=== PATIENT | male | born 1955 | race Caucasian/White ===

== ENCOUNTER 2020-03-30 12:08 | Emergency (ER) | payer MEDICARE, MEDICAID ==
[~2020-03-30] VITALS: Ht 193 cm; Wt 92.9 kg
[~2020-03-30 12:08] MED LIST: COL0.6T PO; HYDR-3567 PO; LISI40TA4 PO; METO100T7 PO; VAL5T PO
--- NOTE | 2020-03-30 12:33 | NUR ---
Daughter Latoya contact number [phone] or [phone] [place] contact number [phone]
[2020-03-30] MEDS ORDERED: normal saline 1000ML IV soln IVB ONE (13:30)
[2020-03-30] MEDS ORDERED: gabapentin 300mg capsule PO ONE (13:35)
[2020-03-30] MEDS ORDERED: ketorolac tromethamine 15mg/ml inj. IV ONE (13:35)
[2020-03-30 13:58] LABS: BASOPHILS # (AUTO) 0.1 X10'3 (0-0.2); BASOPHILS % (AUTO) 0.7 % (0-1); EOSINOPHILS % (AUTO) 0.4 % (0-6); HEMATOCRIT 46.4 % (42.0-52.0); LYMPHOCYTES % (AUTO) 10.9 % (21-51); MEAN CORPUSCULAR HGB CONC 34.5 g/dL (33.0-36.5); MEAN CORPUSCULAR VOLUME 95.6 FL (78-98); MEAN PLATELET VOLUME 6.8 FL (7.4-10.4); MONOCYTES # (AUTO) 0.6 X10'3 (0-0.9); MONOCYTES % (AUTO) 6.3 % (2-12); NEUTROPHILS # (AUTO) 7.8 X10'3 (1.8-7.7); NEUTROPHILS % (AUTO) 81.7 % (42-75); PLATELET COUNT 295 X10'3 (140-440); RED BLOOD COUNT 4.86 X10'6 (4.70-6.10); RED CELL DISTRIBUTION WIDTH 14.3 % (11.5-14.5); WHITE BLOOD COUNT 9.5 X10'3 (4.5-11.0)
[2020-03-30 14:05] LABS: ALANINE AMINOTRANSFERASE 30 U/L (12-78); ALBUMIN 4.5 G/DL (3.4-5.0); ALBUMIN/GLOBULIN RATIO 1.2 (1.1-1.5); ALKALINE PHOSPHATASE 95 IU/L (46-116); ANION GAP 5 (8-16); ASPARTATE AMINO TRANSFERASE 29 U/L (10-37); BILIRUBIN,TOTAL 0.9 MG/DL (0.1-1.0); BLOOD UREA NITROGEN 19 MG/DL (7-18); BUN/CREATININE RATIO 12.6 (5.4-32.0); CALCIUM 9.1 MG/DL (8.5-10.1); CHLORIDE 102 MMOL/L (99-107); CREATININE 1.51 MG/DL (0.60-1.10); GLUCOSE 120 MG/DL (70-104); POTASSIUM 4.6 MMOL/L (3.5-5.1); SODIUM 135 MMOL/L (135-145); TOTAL CARBON DIOXIDE 28.3 MMOL/L (24-32); TOTAL PROTEIN 8.4 G/DL (6.4-8.2); eGFR 47 ML/MIN
[2020-03-30 14:24] LABS: CLARITY,URINE SLIGHTLY CLOUDY (Clear); COLOR,URINE YELLOW (Yellow); GLUCOSE, URINE NEGATIVE (Neg); KETONES,URINE NEGATIVE (Neg); LEUKOCYTE ESTERASE ,URINE NEGATIVE (Neg); NITRITES, URINE NEGATIVE (Neg); OCCULT BLOOD,URINE SMALL (Neg); PH,URINE 5.5 (4.8-8.0); PROTEIN,URINE 100 mg/dl (Neg); UA COLLECTION TYPE CLN CATCH MIDSTREAM
[2020-03-30 14:33] LABS: MUCUS STRANDS MODERATE /LPF (Neg); SQUAMOUS EPITHELIAL CELL,UR MANY /LPF (FEW)
[2020-03-30 14:35] LABS: BACTERIA,URINE FEW /HPF (Neg); HYALINE CASTS 0-3 /LPF (NEGATIVE); RBC,URINE 0-2 /HPF (0-2); WBC,URINE 0-4 /HPF (0-4)
[2020-03-30 15:33] VITALS: BP 188/113
--- NOTE | 2020-03-30 15:34 | NUR ---
PATIENT CONTINUES TO C/O PAIN IN LOWER BACK, RADIATING TO BILAT LEGS. STATES HE IS UNABLE TO REST AND IS MOVING AROUND ON GURNEY AND STANDING UP, BENDING LEGS FREQUENTLY.
[2020-03-30] MEDS ORDERED: IBUP-1985 PO (15:45)
[2020-03-30] MEDS ORDERED: LIDO700A32 TOP (15:45)
[2020-03-30] MEDS ORDERED: CYCL-1 PO (15:45)
[2020-03-30] MEDS ORDERED: orphenadrine citrate 60mg/2ml inj. IM ONE (16:05)
== END 2020-03-30 16:30 | disposition home or self-care (01) ==
LOC: ER 12:09
DX: M54.42 Lumbago with sciatica, left side (principal); I10 Essential (primary) hypertension; Z79.899 Other long term (current) drug therapy
CPT/HCPCS: 36415; 72100; 80053; 81001; 85025; 96361; 96372; 96374; 99284; J1885; J2360; J7030

== ENCOUNTER 2022-01-11 18:15 | Emergency (ER) | payer BC, MEDICAID ==
[~2022-01-11] VITALS: Ht 193 cm; Wt 122.7 kg
[~2022-01-11 18:15] MED LIST changes: +CYCL-1 PO; +DIAZ5TAB22 PO; +IBUP-1985 PO; +LIDO700A32 TOP; +LISI40TA13 PO; -LISI40TA4 PO; -VAL5T PO
[2022-01-11 18:18] VITALS: BP 191/93
== END 2022-01-11 19:05 | disposition left against medical advice (07) ==
LOC: ER 18:16
DX: R53.1 Weakness (principal); Z53.21 Procedure and treatment not carried out due to patient leaving prior to being seen by health care provider

== ENCOUNTER 2023-04-13 17:53 | Emergency (ER) | payer BC, MEDICAID ==
[~2023-04-13] VITALS: Ht 193 cm; Wt 110.0 kg
[~2023-04-13 17:53] MED LIST changes: -COL0.6T PO; -CYCL-1 PO; -DIAZ5TAB22 PO; -HYDR-3567 PO; -IBUP-1985 PO; -LISI40TA13 PO; -METO100T7 PO; +PANT-47 PO
--- NOTE | 2023-04-13 18:29 | NUR ---
NA 1822
[2023-04-14] MEDS ORDERED: ondansetron 4mg rapidly disintigrating tab PO ONE (04:25)
[2023-04-14] MEDS ORDERED: HYDROmorphone 1 mg/ml syringe IM ONE (04:25)
[2023-04-14] MEDS ORDERED: ketorolac trometh. 30mg/ml inj. IV STA (04:28)
[2023-04-14] MEDS ORDERED: ondansetron/PF 4mg/2ml inj IV ONE (04:40)
[2023-04-14] MEDS ORDERED: HYDROmorphone 1 mg/ml syringe IV ONE ×2 (04:40→05:25)
[2023-04-14 05:10] LABS: BASOPHILS # (AUTO) 0.1 X10'3 (0-0.2); BASOPHILS % (AUTO) 0.6 % (0-1); EOSINOPHILS # (AUTO) 0.1 X10'3 (0-0.9); EOSINOPHILS % (AUTO) 1.1 % (0-6); HEMATOCRIT 38.8 % (42.0-52.0); LYMPHOCYTES # (AUTO) 0.9 X10'3 (1.1-4.8); LYMPHOCYTES % (AUTO) 8.3 % (21-51); MEAN CORPUSCULAR HEMOGLOBIN 29.8 PG (27.0-31.0); MEAN CORPUSCULAR HGB CONC 33.5 g/dL (33.0-36.5); MEAN PLATELET VOLUME 7.2 FL (7.4-10.4); MONOCYTES % (AUTO) 8.8 % (2-12); NEUTROPHILS # (AUTO) 8.9 X10'3 (1.8-7.7); NEUTROPHILS % (AUTO) 81.2 % (42-75); PLATELET COUNT 317 X10'3 (140-440); RED BLOOD COUNT 4.36 X10'6 (4.70-6.10); RED CELL DISTRIBUTION WIDTH 16.6 % (11.5-14.5); WHITE BLOOD COUNT 10.9 X10'3 (4.5-11.0)
[2023-04-14 05:32] LABS: ALANINE AMINOTRANSFERASE 20 U/L (12-78); ALBUMIN 3.7 G/DL (3.4-5.0); ALBUMIN/GLOBULIN RATIO 0.9 (1.1-1.5); ALKALINE PHOSPHATASE 109 IU/L (46-116); ANION GAP 10 (8-16); ASPARTATE AMINO TRANSFERASE 17 U/L (10-37); BILIRUBIN,TOTAL 0.8 MG/DL (0.1-1.0); BLOOD UREA NITROGEN 24 MG/DL (7-18); BUN/CREATININE RATIO 17.1 (10.0-20.0); CALCIUM 9.1 MG/DL (8.5-10.1); CHLORIDE 99 MMOL/L (99-107); GLUCOSE 130 MG/DL (70-104); SODIUM 133 MMOL/L (135-145); TOTAL CARBON DIOXIDE 23.6 MMOL/L (24-32); URIC ACID 8.4 MG/DL (3.5-7.2); eCRCL 62 ML/MIN; eGFR 50 ML/MIN
--- NOTE | 2023-04-14 05:36 | NUR ---
VASC WAS PAGED. BRIONNA NUNEZ SAID IT CAN BE DONE WHEN THEY COME IN RATHER THAN BEING STAT.
[2023-04-14 07:07] VITALS: TEMP 97.8
[2023-04-14] MEDS ORDERED: NAPR-1154 PO (07:36)
[2023-04-14] MEDS ORDERED: ACET-2615 PO (07:36)
[2023-04-14] MEDS ORDERED: CYCL-394 PO (07:36)
[2023-04-14 08:51] VITALS: BP 121/66; PULSE 64; RESP 16; O2SAT 97
== END 2023-04-14 08:52 | disposition home or self-care (01) ==
LOC: ER 17:54
DX: M25.531 Pain in right wrist (principal); I10 Essential (primary) hypertension; Z79.899 Other long term (current) drug therapy; X58.XXXA Exposure to other specified factors, initial encounter; Y93.89 Activity, other specified; Y92.89 Other specified places as the place of occurrence of the external cause; Y99.8 Other external cause status
CPT/HCPCS: 36415; 73110; 80053; 83605; 84550; 85025; 87040; 93971; 96374; 96375; 99285; A6258; J1170; J1885

== ENCOUNTER 2023-05-09 19:28 | Emergency (ER) | payer BC, MEDICAID ==
[~2023-05-09] VITALS: Ht 193 cm; Wt 115.9 kg
[~2023-05-09 19:28] MED LIST changes: +NAPR-1154 PO
[2023-05-09 19:58] VITALS: O2SAT 99
[2023-05-09 20:20] LABS: BASOPHILS # (AUTO) 0.1 X10'3 (0-0.2); BASOPHILS % (AUTO) 0.7 % (0-1); EOSINOPHILS % (AUTO) 0.3 % (0-6); HEMOGLOBIN 13.6 g/dl (14.0-17.9); LYMPHOCYTES # (AUTO) 1.2 X10'3 (1.1-4.8); LYMPHOCYTES % (AUTO) 9.3 % (21-51); MEAN CORPUSCULAR HEMOGLOBIN 29.4 PG (27.0-31.0); MEAN CORPUSCULAR HGB CONC 33.2 g/dL (33.0-36.5); MEAN CORPUSCULAR VOLUME 88.7 FL (78-98); MONOCYTES # (AUTO) 1.1 X10'3 (0-0.9); MONOCYTES % (AUTO) 8.3 % (2-12); NEUTROPHILS # (AUTO) 10.8 X10'3 (1.8-7.7); NEUTROPHILS % (AUTO) 81.4 % (42-75); PLATELET COUNT 296 X10'3 (140-440); RED BLOOD COUNT 4.63 X10'6 (4.70-6.10); RED CELL DISTRIBUTION WIDTH 17.7 % (11.5-14.5); WHITE BLOOD COUNT 13.2 X10'3 (4.5-11.0)
[2023-05-09] MEDS ORDERED: oxyCODONE/APAP 10/325mg tablet PO ONE (20:20)
[2023-05-09 20:33] LABS: ALANINE AMINOTRANSFERASE 11 U/L (12-78); ALBUMIN 3.5 G/DL (3.4-5.0); ALBUMIN/GLOBULIN RATIO 0.8 (1.1-1.5); ALKALINE PHOSPHATASE 102 IU/L (46-116); ANION GAP 11 (8-16); ASPARTATE AMINO TRANSFERASE 13 U/L (10-37); BLOOD UREA NITROGEN 19 MG/DL (7-18); BUN/CREATININE RATIO 13.8 (10.0-20.0); CALCIUM 8.9 MG/DL (8.5-10.1); CHLORIDE 100 MMOL/L (99-107); CREATININE 1.38 MG/DL (0.60-1.10); GLUCOSE 121 MG/DL (70-104); POTASSIUM 4.5 MMOL/L (3.5-5.1); SODIUM 132 MMOL/L (135-145); TOTAL CARBON DIOXIDE 21.5 MMOL/L (24-32); TOTAL PROTEIN 7.7 G/DL (6.4-8.2); URIC ACID 7.4 MG/DL (3.5-7.2); eCRCL 63 ML/MIN; eGFR 51 ML/MIN
[2023-05-09] MEDS ORDERED: ondansetron 4mg rapidly disintigrating tab PO ONE (22:10)
[2023-05-09] MEDS ORDERED: HYDROcodone/acetaminophen 5mg/325mg tablet PO ONE (22:10)
[2023-05-09] MEDS ORDERED: cephalexin 250mg capsule PO ONE (22:10)
[2023-05-09] MEDS ORDERED: predniSONE 20 mg tablet PO ONE (22:10)
[2023-05-09] MEDS ORDERED: CEPH250T PO (22:12)
[2023-05-09] MEDS ORDERED: HYDR-3965 PO (22:13)
[2023-05-09 22:56] VITALS: BP 143/82; PULSE 92; RESP 16; TEMP 98.7
== END 2023-05-09 22:58 | disposition home or self-care (01) ==
LOC: ER 19:29
DX: L03.115 Cellulitis of right lower limb (principal); I10 Essential (primary) hypertension; Z79.899 Other long term (current) drug therapy
CPT/HCPCS: 36415; 73564; 80053; 84550; 85025; 99284; J7512

== ENCOUNTER 2024-03-13 19:26 | Emergency (ER) | payer BC, MEDICAID ==
[~2024-03-13] VITALS: Ht 193 cm; Wt 125.4 kg
[2024-03-13 19:32] VITALS: TEMP 100.2
[2024-03-13] MEDS ORDERED: COLC0.6C3 PO (20:11)
[2024-03-13] MEDS ORDERED: IBUP-1984 PO (20:11)
[2024-03-13] MEDS: ketorolac trometh 30MG/ML vial 30 MG/ML VIAL IM ONE (20:42)
[2024-03-13] MEDS: colchicine 0.6mg tablet PO ONE (20:48)
[2024-03-13] MEDS: colchicine 0.6mg tablet PO SCH (20:48)
[2024-03-13 20:54] VITALS: BP 140/86; PULSE 80; RESP 18; O2SAT 97
== END 2024-03-13 20:54 | disposition home or self-care (01) ==
LOC: ER 19:27
DX: M10.9 Gout, unspecified (principal); I10 Essential (primary) hypertension; Z79.899 Other long term (current) drug therapy
CPT/HCPCS: 96372; 99283; J1885